=== PATIENT | female | born 1955 | race Caucasian/White ===

== ENCOUNTER 2017-07-10 10:56 | Observation (INO) | payer BC ==
[~2017-07-10] VITALS: Ht 167.6 cm; Wt 96.4 kg
[~2017-07-10 10:56] MED LIST: ESCI20 PO; ROFE25 PO; RXTRAM50 PO; TRAM50 PO
[2017-07-10 11:27] LABS: BASOPHILS ABSOLUTE AUTO 0.03 K/mm3 (0.00-0.23); BASOPHILS PERCENT AUTO 1 % (0-2); EOSINOPHILS ABSOLUTE AUTO 0.07 K/mm3 (0.00-0.68); EOSINOPHILS PERCENT AUTO 1 % (0-6); Hematocrit 39.9 % (33.0-51.0); Hemoglobin 13.6 g/dL (11.5-16.0); IMMATURE GRAN ABSOLUTE AUTO 0.02 K/mm3 (0.00-0.10); IMMATURE GRAN PERCENT AUTO 0 % (0-1); LYMPHOCYTES ABSOLUTE AUTO 1.77 K/mm3 (0.84-5.20); LYMPHOCYTES PERCENT AUTO 27 % (21-46); MONOCYTES ABSOLUTE AUTO 0.48 K/mm3 (0.16-1.47); MONOCYTES PERCENT AUTO 7 % (4-13); Mean Corpuscular HGB Conc 34.1 g/dL (31.5-36.5); Mean Corpuscular Volume 88 fL (80-100); Mean Platelet Volume 9.8 fL (9.1-12.4); NEUTROPHILS ABSOLUTE AUTO 4.24 K/mm3 (1.96-9.15); NEUTROPHILS PERCENT AUTO 64 % (41-73); Platelet Count 192 K/mm3 (150-400); RDW Coefficient Variation 13.6 % (11.7-14.2); RDW Standard Deviation 44.1 fL (35.1-46.3); Red Blood Cell Count 4.53 M/mm3 (3.80-5.20); White Blood Cell Count 6.61 K/mm3 (4.00-11.30)
[2017-07-10 11:45] LABS: Alanine Aminotransfer (ALT/SGP 21 U/L (12-78); Albumin, Blood 3.9 g/dL (3.4-5.0); Albumin/Globulin Ratio 0.9 (0.8-1.8); Alk Phos 112 U/L (50-136); Anion Gap 8 mmol/L (6-16); Aspartate Aminotrans (AST/SGOT 16 U/L (12-37); Bilirubin, Total 0.5 mg/dL (0.1-1.0); Blood Urea Nitrogen 11 mg/dL (8-24); Bun/Creatinine Ratio 12.9 (12.0-20.0); CO2, Blood 23 mmol/L (21-32); Calcium, Blood 8.7 mg/dL (8.5-10.1); Chloride, Blood 111 mmol/L (98-108); Creatinine, Blood 0.86 mg/dL (0.40-1.00); Globulin, Blood 4.2 g/dL (2.2-4.0); Glomerular Filtration Rate >60 (60-); Glucose, Blood 128 mg/dL (70-99); Potassium, Blood 2.9 mmol/L (3.5-5.5); Sodium, Blood 142 mmol/L (136-145); Total Protein, Blood 8.1 g/dL (6.4-8.2); Troponin I <0.015 ng/mL (0.000-0.040)
[2017-07-10] MEDS ORDERED: Pentasa500 MG PO (14:48)
[2017-07-10] MEDS ORDERED: QUETIAPINE FUMA50 MG PO (14:48)
[2017-07-10] MEDS ORDERED: CHOL10002 (14:49)
[2017-07-10] MEDS ORDERED: CYAN500 PO (14:49)
[2017-07-11 05:50] LABS: Troponin I <0.015 ng/mL (0.000-0.040)
[2017-07-11 05:59] LABS: Anion Gap 8 mmol/L (6-16); Blood Urea Nitrogen 9 mg/dL (8-24); Bun/Creatinine Ratio 13.9 (12.0-20.0); CO2, Blood 23 mmol/L (21-32); Chloride, Blood 113 mmol/L (98-108); Creatinine, Blood 0.65 mg/dL (0.40-1.00); Glomerular Filtration Rate >60 (60-); Glucose, Blood 121 mg/dL (70-99); Potassium, Blood 2.8 mmol/L (3.5-5.5); Sodium, Blood 144 mmol/L (136-145)
[2017-07-11 06:05] LABS: Calcium, Blood 7.7 mg/dL (8.5-10.1)
[2017-07-11 14:39] LABS: Anion Gap 9 mmol/L (6-16); Blood Urea Nitrogen 9 mg/dL (8-24); Bun/Creatinine Ratio 11.5 (12.0-20.0); CO2, Blood 23 mmol/L (21-32); Calcium, Blood 8.3 mg/dL (8.5-10.1); Chloride, Blood 111 mmol/L (98-108); Creatinine, Blood 0.78 mg/dL (0.40-1.00); Glomerular Filtration Rate >60 (60-); Glucose, Blood 158 mg/dL (70-99); Potassium, Blood 3.3 mmol/L (3.5-5.5); Sodium, Blood 143 mmol/L (136-145)
[2017-07-11] MEDS ORDERED: POTCHL20ER PO (16:39)
== END 2017-07-11 16:58 | disposition home or self-care (01) ==
LOC: ER 10:56 → MEDS 10:57 → ENPENDDIS 07-11 16:00 → MEDS 07-11 16:58
PROVIDERS: Emergency Medicine; Family Medicine
DX: R07.9 Chest pain, unspecified (principal); R10.9 Unspecified abdominal pain; E87.6 Hypokalemia; F32.9 Major depressive disorder, single episode, unspecified; F12.90 Cannabis use, unspecified, uncomplicated; E78.5 Hyperlipidemia, unspecified; Z90.49 Acquired absence of other specified parts of digestive tract; Z90.710 Acquired absence of both cervix and uterus; Z98.890 Other specified postprocedural states; Z88.5 Allergy status to narcotic agent; Z91.013 Allergy to seafood; Z91.041 Radiographic dye allergy status; Z79.899 Other long term (current) drug therapy; Z87.891 Personal history of nicotine dependence; Z87.19 Personal history of other diseases of the digestive system
CPT/HCPCS: 36415; 71046; 80048; 80053; 83735; 84484; 85025; 93005; 93010; 99285; G0378

== ENCOUNTER 2020-06-16 12:04 | Inpatient (IN) | payer OTHER ==
[~2020-06-16] VITALS: Ht 167.6 cm; Wt 87.5 kg
[~2020-06-16 12:04] MED LIST changes: +ACET325 PO; +CHOL10002; +CYAN500 PO; -ESCI20 PO; +POTCHL20ER PO; +Pentasa500 MG PO
[2020-06-16] MEDS ORDERED: ONDA8 PO (13:12)
[2020-06-16] MEDS ORDERED: ESCI10 PO (13:12)
[2020-06-16] MEDS ORDERED: Seroquel Xr50 MG PT (13:13)
[2020-06-16] MEDS ORDERED: TOLT4 PT (13:13)
[2020-06-16] MEDS ORDERED: ASCO500 PO (13:14)
[2020-06-16] MEDS ORDERED: CYAN500 PO (13:14)
[2020-06-16] MEDS ORDERED: Vitamin D2000 UNIT PO (13:14)
[2020-06-16 13:35] LABS: Free Thyroxine 1.33 ng/dL (0.70-1.60); Magnesium, Blood 1.9 mg/dL (1.6-2.4); Phosphorus, Blood 2.6 mg/dL (2.5-4.9); Thyroid Stimulating Hormone 1.13 uIU/mL (0.360-4.800)
[2020-06-16 13:57] LABS: Hematocrit 25.4 % (33.0-51.0); Mean Corpuscular Volume 77 fL (80-100); Mean Platelet Volume 10.5 fL (9.1-12.4); Platelet Count 200 K/mm3 (150-400); RDW Coefficient Variation 14.6 % (11.7-14.2); RDW Standard Deviation 39.8 fL (35.1-46.3); Red Blood Cell Count 3.31 M/mm3 (3.80-5.20)
[2020-06-16 14:55] LABS: BAND PERCENT MAN 6 % (0-8); BASOPHILS PERCENT MAN 0 % (0-2); EOSINOPHILS PERCENT MAN 0 % (0-6); LYMPHOCYTES ABSOLUTE MAN 0.76 K/mm3 (0.84-5.20); LYMPHOCYTES PERCENT MAN 4 % (21-46); METAMYELOCYTE ABSOLUTE MAN 0.38 K/mm3 (0.00-0.00); METAMYELOCYTE PERCENT MAN 2 % (0-0); MONOCYTES ABSOLUTE MAN 0.38 K/mm3 (0.16-1.47); MONOCYTES PERCENT MAN 2 % (4-13); NEUTROPHILS ABSOLUTE MAN 17.57 K/mm3 (1.96-9.15); SEG NEUTROPHILS PERCENT MAN 86 % (41-73); TOTAL CELLS COUNTED 100
[2020-06-16 15:23] LABS: Hematocrit 21.4 % (33.0-51.0); Mean Corpuscular Volume 79 fL (80-100); Platelet Count 183 K/mm3 (150-400); RDW Coefficient Variation 14.6 % (11.7-14.2); RDW Standard Deviation 39.8 fL (35.1-46.3); Red Blood Cell Count 2.71 M/mm3 (3.80-5.20); White Blood Cell Count 17.29 K/mm3 (4.00-11.30)
[2020-06-16 15:51] LABS: Albumin, Blood 3.4 g/dL (3.4-5.0); Anion Gap 15 mmol/L (6-16); Blood Urea Nitrogen 131 mg/dL (8-24); Bun/Creatinine Ratio 20.7 (12.0-20.0); CO2, Blood 24 mmol/L (21-32); Calcium, Blood 9.1 mg/dL (8.5-10.1); Chloride, Blood 87 mmol/L (98-108); Creatinine, Blood 6.34 mg/dL (0.40-1.00); Glomerular Filtration Rate 7 (60-); Glucose, Blood 192 mg/dL (70-99); Potassium, Blood 1.7 mmol/L (3.5-5.5); Sodium, Blood 126 mmol/L (136-145)
[2020-06-16 15:55] LABS: BAND PERCENT MAN 6 % (0-8); BASOPHILS PERCENT MAN 0 % (0-2); EOSINOPHILS PERCENT MAN 0 % (0-6); LYMPHOCYTES ABSOLUTE MAN 0.51 K/mm3 (0.84-5.20); LYMPHOCYTES PERCENT MAN 3 % (21-46); METAMYELOCYTE ABSOLUTE MAN 0.51 K/mm3 (0.00-0.00); METAMYELOCYTE PERCENT MAN 3 % (0-0); MONOCYTES ABSOLUTE MAN 1.21 K/mm3 (0.16-1.47); MONOCYTES PERCENT MAN 7 % (4-13); NEUTROPHILS ABSOLUTE MAN 15.04 K/mm3 (1.96-9.15); SEG NEUTROPHILS PERCENT MAN 81 % (41-73); TOTAL CELLS COUNTED 100
--- NOTE | 2020-06-16 16:55 | NUR ---
PT ARRIVES TO ICU 13 FROM ER VIA GURNEY. ACCOMPANIED BY MANAGER TRADE MARKETING. PT ONLY HAS 24G IV TO L WRIST THAT IS SLOW TO FLUSH. RN AT BEDSIDE TO DO MIDLINE IV SO IV POTASSIUM CAN BE GIVEN. IVF AND FIRST IVP OF POTASSIUM HANGING BUT NOT RUNNING ON ARRIVAL TO UNIT DUE TO POOR IV ACCESS. PT IS A/O X4. DOES MOST OF THE TALKING FOR PT DUE TO HER TONGUE CA. NO SIGN OF DISTRESS.
[2020-06-16 17:23] LABS: Base Excess Venous -5.5 mmol/L; Bicarbonate Venous 19.8 mmol/L (24.0-30.0); PCO2 Venous 37.1 mmHg (38-42); PO2 Venous 31.8 mmHg (38-42); pH Blood Venous 7.34 (7.34-7.37)
--- NOTE | 2020-06-16 17:30 | NUR ---
POWERGLIDE IV ACCESS WAS OBTAINED. IVF AND POTASSIUM IVPB STARTED THAT WAS HANGING FROM THE ER. NO DISTRESS. AT BEDSIDE. PEG TUBE WORKS WELL. CALL LIGHT IN REACH.
--- NOTE | 2020-06-16 19:00 | NUR ---
ASSUMPTION OF CARE RECEIVED REPORT FROM CY EVERETT. ASSUMED CARE OF PATIENT. PATEINT A/O, DENIES DISCOMFORTS OR NEEDS. VITALS STABLE. POTASSIUM IV INFUSING ORDERED. WILL REVIEW ORDERS AND TREAT PRESCRIBED.
[2020-06-16 19:34] LABS: Hematocrit 19.7 % (33.0-51.0); Hemoglobin 7.4 g/dL (11.5-16.0)
--- NOTE | 2020-06-17 | NUR ---
REASSESSMENT NO ACUTE CHANGES FROM INITIAL ASSESSMENT. VITALS CHARTED. POTASSIUM CONTINUES TO INFUSE VIA IV. PATIENT EASILY AWAKENS AND DENIES NEEDS OR DISCOMFORTS. CALL LIGHT IN REACH.
[2020-06-17 01:51] LABS: BASOPHILS ABSOLUTE AUTO 0.02 K/mm3 (0.00-0.23); BASOPHILS PERCENT AUTO 0 % (0-2); EOSINOPHILS ABSOLUTE AUTO 0.01 K/mm3 (0.00-0.68); EOSINOPHILS PERCENT AUTO 0 % (0-6); Hemoglobin 6.6 g/dL (11.5-16.0); IMMATURE GRAN ABSOLUTE AUTO 1.21 K/mm3 (0.00-0.10); IMMATURE GRAN PERCENT AUTO 11 % (0-1); LYMPHOCYTES ABSOLUTE AUTO 0.58 K/mm3 (0.84-5.20); LYMPHOCYTES PERCENT AUTO 5 % (21-46); MONOCYTES ABSOLUTE AUTO 0.71 K/mm3 (0.16-1.47); MONOCYTES PERCENT AUTO 7 % (4-13); Mean Corpuscular HGB 29.5 pg (26.0-34.0); Mean Corpuscular HGB Conc 36.9 g/dL (31.5-36.5); Mean Corpuscular Volume 80 fL (80-100); Mean Platelet Volume 9.9 fL (9.1-12.4); NEUTROPHILS ABSOLUTE AUTO 8.23 K/mm3 (1.96-9.15); NEUTROPHILS PERCENT AUTO 77 % (41-73); Platelet Count 146 K/mm3 (150-400); RDW Coefficient Variation 14.6 % (11.7-14.2); RDW Standard Deviation 41.2 fL (35.1-46.3); Red Blood Cell Count 2.24 M/mm3 (3.80-5.20); White Blood Cell Count 10.76 K/mm3 (4.00-11.30)
[2020-06-17 01:53] LABS: Hematocrit 17.9 % (33.0-51.0)
[2020-06-17 02:05] LABS: Magnesium, Blood 2.4 mg/dL (1.6-2.4)
[2020-06-17 02:09] LABS: BAND PERCENT MAN 7 % (0-8); BASOPHILS PERCENT MAN 0 % (0-2); EOSINOPHILS PERCENT MAN 0 % (0-6); LYMPHOCYTES ABSOLUTE MAN 0.64 K/mm3 (0.84-5.20); LYMPHOCYTES PERCENT MAN 6 % (21-46); MONOCYTES ABSOLUTE MAN 0.53 K/mm3 (0.16-1.47); MONOCYTES PERCENT MAN 5 % (4-13); NEUTROPHILS ABSOLUTE MAN 9.57 K/mm3 (1.96-9.15); SEG NEUTROPHILS PERCENT MAN 82 % (41-73); TOTAL CELLS COUNTED 100
[2020-06-17 02:19] LABS: Albumin, Blood 2.8 g/dL (3.4-5.0); Anion Gap 13 mmol/L (6-16); Blood Urea Nitrogen 124 mg/dL (8-24); Bun/Creatinine Ratio 20.4 (12.0-20.0); CO2, Blood 21 mmol/L (21-32); Calcium, Blood 8.1 mg/dL (8.5-10.1); Chloride, Blood 99 mmol/L (98-108); Creatinine, Blood 6.07 mg/dL (0.40-1.00); Glomerular Filtration Rate 7 (60-); Glucose, Blood 140 mg/dL (70-99); Phosphorus, Blood 2.5 mg/dL (2.5-4.9); Potassium, Blood 2.2 mmol/L (3.5-5.5); Sodium, Blood 133 mmol/L (136-145)
--- NOTE | 2020-06-17 02:28 | NUR ---
LABS RECEIVED LABS, CALLED DR. MARI AND LEFT MESSAGE AT [phone]. AWAITING CALL BACK.
[2020-06-17 02:58] LABS: Source, Urine Clean Catch
[2020-06-17 03:05] LABS: Bilirubin, Urine Neg (Neg); Blood, Urine 1+ (Neg); Glucose Qualitative, Urine Neg (Neg); Ketones, Urine Neg (Neg); Leukocyte Esterase, Urine Neg (Neg); Nitrite, Urine Neg (Neg); Protein, Urine 2+ (Neg); Urobilinogen, Urine NORM (Normal)
[2020-06-17 03:14] LABS: Appearance, Urine Clear (Clear); Color, Urine Yellow (P-Yellow)
[2020-06-17 03:15] LABS: Bacteria Mod /hpf; Red Blood Cells, Urine 0-2 /hpf (0-2); Squamous Epithelial Cells Few /hpf (Few)
--- NOTE | 2020-06-17 04:00 | NUR ---
REASSESSMENT NO ACUTE CHANGES FROM PREVIOUS ASSESSMENT. VITALS STABLE. LABS WERE REPORTED TO DR. MARI WITH NEW ORDER RECEIVED. WILL TREAT PRESCRIBED.
--- NOTE | 2020-06-17 06:28 | NUR ---
SHIFT SUMMARY PATIENT'S ASSESSMENT REMAINED UNCHANGED. VITALS STABLE. POTASSIUM REPORTED TO DR. MARI CHARTED AND IS CURRENTLY INFUSING VIA IV. PRBC ARE ALSO INFUSING ORDERED. WILL CONTINUE TO MONITOR AND REPORT TO ONCOMING RN.
--- NOTE | 2020-06-17 08:10 | NUR ---
ASSUMED CARE RECEIVED REPORT FROM MARGUERITE BAXTER. PT IS LYING IN BED AWAKE, ALERT, AND ORIENTED X 4. SHE IS [place] AND CAN HAVE DIFFICULTY SPEAKING HER MOUTH GETS DRY FROM HER HISTORY OF TONGUE CANCER, RADIATION, AND CHEMO. SHE DENIES PAIN, SOB, AND NAUSEA. HER PEG TUBE SITE LOOKS CDI. HER UNIT OF BLOOD FINISHED JUST BEFORE 0800. LABS WILL BE RECHECKED AT [address] MAYO. SHE HAS STABLE VITALS, SINUS RHYTHM, MAP > 65, ON ROOM AIR WITH SPOW > 94%. NS INFUSING AT 100 ML/HR WHILE BLOOD WAS INFUSING, BUT NOW INCREASED TO 200 ML/HR PER ORDERS NOW THAT BLOOD HAS FINISHED INFUSING. BED LOW AND LOCKED. CALL LIGHT WITHIN REACH.
[2020-06-17 08:48] LABS: Hematocrit 20.8 % (33.0-51.0); Hemoglobin 7.5 g/dL (11.5-16.0); Mean Corpuscular HGB 30.1 pg (26.0-34.0); Mean Corpuscular HGB Conc 36.1 g/dL (31.5-36.5); Mean Corpuscular Volume 84 fL (80-100); Mean Platelet Volume 9.7 fL (9.1-12.4); Platelet Count 139 K/mm3 (150-400); RDW Coefficient Variation 16.4 % (11.7-14.2); RDW Standard Deviation 48.9 fL (35.1-46.3); Red Blood Cell Count 2.49 M/mm3 (3.80-5.20); White Blood Cell Count 11.82 K/mm3 (4.00-11.30)
[2020-06-17 09:06] LABS: Albumin, Blood 2.7 g/dL (3.4-5.0); Albumin/Globulin Ratio 0.9 (0.8-1.8); Bilirubin, Total 0.6 mg/dL (0.1-1.0); Bun/Creatinine Ratio 20.5 (12.0-20.0); Calcium, Blood 8.1 mg/dL (8.5-10.1); Creatinine, Blood 5.67 mg/dL (0.40-1.00); Globulin, Blood 3.1 g/dL (2.2-4.0); Magnesium, Blood 2.4 mg/dL (1.6-2.4); Potassium, Blood 2.6 mmol/L (3.5-5.5); Total Protein, Blood 5.8 g/dL (6.4-8.2)
[2020-06-17 09:09] LABS: BAND PERCENT MAN 5 % (0-8); BASOPHILS PERCENT MAN 0 % (0-2); EOSINOPHILS PERCENT MAN 0 % (0-6); LYMPHOCYTES ABSOLUTE MAN 0.82 K/mm3 (0.84-5.20); LYMPHOCYTES PERCENT MAN 7 % (21-46); MONOCYTES ABSOLUTE MAN 1.06 K/mm3 (0.16-1.47); MONOCYTES PERCENT MAN 9 % (4-13); MYELOCYTE ABSOLUTE MAN 0.11 K/mm3 (0.00-0.00); MYELOCYTE PERCENT MAN 1 % (0-0); NEUTROPHILS ABSOLUTE MAN 9.81 K/mm3 (1.96-9.15); SEG NEUTROPHILS PERCENT MAN 78 % (41-73); TOTAL CELLS COUNTED 100
[2020-06-17 15:56] LABS: Hematocrit 20.6 % (33.0-51.0); Hemoglobin 7.5 g/dL (11.5-16.0); Mean Corpuscular HGB 30.7 pg (26.0-34.0); Mean Corpuscular HGB Conc 36.4 g/dL (31.5-36.5); Mean Corpuscular Volume 84 fL (80-100); Mean Platelet Volume 9.8 fL (9.1-12.4); Platelet Count 156 K/mm3 (150-400); RDW Coefficient Variation 15.9 % (11.7-14.2); RDW Standard Deviation 47.4 fL (35.1-46.3); Red Blood Cell Count 2.44 M/mm3 (3.80-5.20); White Blood Cell Count 11.54 K/mm3 (4.00-11.30)
[2020-06-17 16:13] LABS: Albumin, Blood 2.7 g/dL (3.4-5.0); Albumin/Globulin Ratio 0.9 (0.8-1.8); Bilirubin, Total 0.3 mg/dL (0.1-1.0); Bun/Creatinine Ratio 20.6 (12.0-20.0); Calcium, Blood 8.3 mg/dL (8.5-10.1); Creatinine, Blood 5.19 mg/dL (0.40-1.00); Total Protein, Blood 5.7 g/dL (6.4-8.2)
[2020-06-17 16:26] LABS: BAND PERCENT MAN 4 % (0-8); BASOPHILS PERCENT MAN 0 % (0-2); EOSINOPHILS PERCENT MAN 0 % (0-6); LYMPHOCYTES PERCENT MAN 7 % (21-46); METAMYELOCYTE ABSOLUTE MAN 0.23 K/mm3 (0.00-0.00); METAMYELOCYTE PERCENT MAN 2 % (0-0); MONOCYTES ABSOLUTE MAN 0.46 K/mm3 (0.16-1.47); MONOCYTES PERCENT MAN 4 % (4-13); NEUTROPHILS ABSOLUTE MAN 10.03 K/mm3 (1.96-9.15); SEG NEUTROPHILS PERCENT MAN 83 % (41-73); TOTAL CELLS COUNTED 100
--- NOTE | 2020-06-17 17:30 | NUR ---
UPDATE/TRANSFER PEG TUBE INSERTION SITE (@ 10cm) - SITE HAS A LITTLE RING OF REDNESS AROUND INSERTION. THERE IS PURULENT DRAINAGE, AND IT HAS A FOUL ODOR. THIS HAS BEEN CULTURED AND SENT TO LAB. THE SPOUSE EXPRESSED CONCERNS REGARDING THE PEG TUBE COMING OUT A LITTLE BIT, 6 OR SO WEEKS AGO WHEN THE TUBE WAS INSERTED IT WAS LISTED AT 6 cm, AND NOW ITS 10 cm. IT FLUSHES WITH EASE, BUT AT 1600 I DID NOT GET ANY MEASURABLE RESIDUALS - OF COURSE AT THAT TIME SHE ONLY HAD ABOUT 88 ML OF TF INFUSED, 30 ML OF WATER FLUSHED, AND HAD POOR INTAKE PRIOR TO COMING TO HOSPITAL. NOT CONCERNED ABOUT THE SCANT RESIDUALS. THE PT STARTED SAYING SHE FELT LIKE SHE WAS GETTING "FULL". MARIA ESTHER IS AWARE OF PT AND HER SPOUSE'S CONCERNS, AND THE DRAINAGE. TF INFUSING AT 20 ML/HR, WITH 30 ML Q4H FLUSHES. TF IS SET TO INCREASE AT 2000 (8 HOURS AFTER STARTED). THE TF IS RENALCAL, AND IT WAS BROUGHT BY FROME HOME. SOLE ROUNDER CONSULTED AND INVOLVED WITH FEED. DR. MANDEL HAS SEEN PT TODAY. SHE HAS MADE SOME CHANGES, PT IS NOW HAVING 1/2NS AT 150ML/HR. PT RECIEVING AN ADDITIONAL 40 MEQ OF KCL IV AFTER HER POTASSIUM AT 1545 CAME BACK 3.0. PT IS TRANSFERRING TO PCU.
[2020-06-18 05:04] LABS: Hematocrit 19.9 % (33.0-51.0); Hemoglobin 7.1 g/dL (11.5-16.0); Mean Corpuscular HGB 30.5 pg (26.0-34.0); Mean Corpuscular HGB Conc 35.7 g/dL (31.5-36.5); Mean Corpuscular Volume 85 fL (80-100); Platelet Count 155 K/mm3 (150-400); RDW Coefficient Variation 16.4 % (11.7-14.2); RDW Standard Deviation 49.5 fL (35.1-46.3); Red Blood Cell Count 2.33 M/mm3 (3.80-5.20); White Blood Cell Count 8.72 K/mm3 (4.00-11.30)
[2020-06-18 05:30] LABS: BAND PERCENT MAN 5 % (0-8); BASOPHILS PERCENT MAN 0 % (0-2); EOSINOPHILS PERCENT MAN 0 % (0-6); LYMPHOCYTES ABSOLUTE MAN 0.69 K/mm3 (0.84-5.20); LYMPHOCYTES PERCENT MAN 8 % (21-46); METAMYELOCYTE ABSOLUTE MAN 0.34 K/mm3 (0.00-0.00); METAMYELOCYTE PERCENT MAN 4 % (0-0); MONOCYTES ABSOLUTE MAN 0.61 K/mm3 (0.16-1.47); MONOCYTES PERCENT MAN 7 % (4-13); NEUTROPHILS ABSOLUTE MAN 7.06 K/mm3 (1.96-9.15); SEG NEUTROPHILS PERCENT MAN 76 % (41-73); TOTAL CELLS COUNTED 100
--- NOTE | 2020-06-18 05:32 | NUR ---
SHIFT SUMMARY PT A&O X 4; PLEASANT & COMPLIANT W/ CARE; DENIES CHEST PAIN; VSS; NSR NOTED ON TELE; O2 SATS >93 ON RA; MINIMAL RESIDUAL W/ PEG TUBE, FLUSHES WELL; CONTINUOUS FEED AT 20 ML/HR; SBA TO BSC, PT T/O WELL; PT SITTING IN BED USING PERSONAL IPAD; NO DISTRESS NOTED; CALL LIGHT IN REACH; BED IN LOWEST POSITION; WILL CONTINUE TO MONITOR CLOSELY UNTIL HAND OFF TO DAY SHIFT RN.
[2020-06-18 05:46] LABS: Albumin, Blood 2.6 g/dL (3.4-5.0); Albumin/Globulin Ratio 0.8 (0.8-1.8); Bilirubin, Total 0.4 mg/dL (0.1-1.0); Bun/Creatinine Ratio 19.5 (12.0-20.0); Calcium, Blood 8.3 mg/dL (8.5-10.1); Creatinine, Blood 4.78 mg/dL (0.40-1.00); Globulin, Blood 3.1 g/dL (2.2-4.0); Magnesium, Blood 2.2 mg/dL (1.6-2.4); Phosphorus, Blood 1.4 mg/dL (2.5-4.9); Potassium, Blood 3.1 mmol/L (3.5-5.5); Total Protein, Blood 5.7 g/dL (6.4-8.2)
[2020-06-18 09:55] LABS: Percent Saturation 51.7 % (15.0-50.0)
--- NOTE | 2020-06-18 09:56 | NUR ---
AWAITING LAB RESULTS BEFORE BLOOD TRANFUSION TO BEGIN PER DR MAYO, LABS ARE STILL PENDING AT THIS TIME
[2020-06-18 14:29] LABS: Phosphorus, Blood 2.5 mg/dL (2.5-4.9); Potassium, Blood 3.2 mmol/L (3.5-5.5)
--- NOTE | 2020-06-18 17:09 | NUR ---
pt sts stomach is too full for liquacel will hold for an hour and reassess
--- NOTE | 2020-06-19 05:49 | NUR ---
SHIFT SUMMARY PT A&O X4; STATES FEELING FRUSTRATED EARLIER IN DAY W/ FAMILY FRIEND CALLING PT'S SON AND DISCLOSING INFORMATION ABOUT BEING IN HOSPITAL; THIS RN LISTENED TO PT AND ALLOWED TIME TO EXPRESS FEELINGS; PT PLEASANT & COMPLIANT W/ CARE; VSS; NSR NOTED ON TELE W/ HR IN 90'S; O2 SATS >93; TF PAUSED FOR A COUPLE HOURS PER PT REQUEST; REMAINDER OF SHIFT TF INFUSING AT 30ML / HR; NO RESIDUAL NOTED, HOWEVER FLUSHES APPROPRIATELY; SBA TO BSC; CALL LIGHT IN REACH; BED IN LOWEST POSITION; WILL CONTINUE TO MONITOR CLOSELY UNTIL HAND OFF TO DAY SHIFT RN.
[2020-06-19 06:45] LABS: Bun/Creatinine Ratio 19.2 (12.0-20.0); Calcium, Blood 8.5 mg/dL (8.5-10.1); Creatinine, Blood 3.86 mg/dL (0.40-1.00); Magnesium, Blood 1.7 mg/dL (1.6-2.4); Phosphorus, Blood 2.7 mg/dL (2.5-4.9)
--- NOTE | 2020-06-19 12:08 | NUR ---
Clinical Visit: Pt is alert, oriented. She denies pain, discomfort. She does report mild to moderate anxiety - which she is able to adequately cope to reduce stress using self-soothing techniques. She reports she does have an advance directive document. Requested family member to bring it in for her: She states she will ask her . Pt reports that she is finished with chemo treatments for now. She has no other concerns. Will remain available.
--- NOTE | 2020-06-19 17:36 | NUR ---
SHIFT SUMMARY; A/A/OX4 THROUGHOUT SHIFT. SBA TO BEDSIDE COMMODE, PEG TUB IN PLACE WITH FEEDING INFUSING AT 40ML/HR WITH Q4HR FLUSH, TOLERATING WELL. VSS, PEG TUBE INSERTION SITE CLEAN DRY AND NON RED. BED BATH TODAY AND LINEN CHANGE. SPOUSE AT BEDSIDE THROUGHOUT AFTERNOON. NO ACUTE MEDICAL CHANGES, WILL CONTINUE TO MONITOR AND TREAT UNTIL CHANGE OF SHIFT.
--- NOTE | 2020-06-19 22:02 | NUR ---
ASSUMED CARE OF PATIENT AT APPROXIMATELY 1900 FROM TONG Reddy RN. PATIENT ALERT AND ORIENTED X4. SBA TO BEDSIDE COMMODE; 24 HR URINE TO START WITH NEXT VOID; LAST VOID MIXED WITH STOOL LEFT IN COMMODE. PATIENT DENIES PAIN, NUMBNESS, TINGLING, DIZZINESS OR NAUSEA. REPORT THROAT IS SORE AND JUST HAD TYLENOL; ICE PACK GIVEN FOR NECK; PATIENT EATS ICE CHIPS. PEG TUBE; CONTINUOUS TUBE FEEDING TO GOAL. PG ANDERS INFUSING IVF PER ORDER. NSR ON TELE; OXYGEN SATURATION ABOVE 90% ON ROOM AIR. PIV S/L. PATIENT CURRENTLY RESTING IN BED; CALL LIGHT IN REACH; BED IN LOWEST POSISTION; WILL CONTINUE TO MONITOR AND ASSESS UNTIL END OF SHIFT.
[2020-06-20 04:50] LABS: Hematocrit 23.5 % (33.0-51.0); Hemoglobin 8.1 g/dL (11.5-16.0); Mean Corpuscular HGB 30.1 pg (26.0-34.0); Mean Corpuscular HGB Conc 34.5 g/dL (31.5-36.5); Mean Corpuscular Volume 87 fL (80-100); Mean Platelet Volume 9.6 fL (9.1-12.4); Platelet Count 207 K/mm3 (150-400); RDW Coefficient Variation 17.1 % (11.7-14.2); RDW Standard Deviation 52.3 fL (35.1-46.3); Red Blood Cell Count 2.69 M/mm3 (3.80-5.20); White Blood Cell Count 10.53 K/mm3 (4.00-11.30)
[2020-06-20 05:09] LABS: Albumin, Blood 2.8 g/dL (3.4-5.0); Albumin/Globulin Ratio 0.8 (0.8-1.8); Bilirubin, Total 0.2 mg/dL (0.1-1.0); Bun/Creatinine Ratio 18.2 (12.0-20.0); Calcium, Blood 8.6 mg/dL (8.5-10.1); Creatinine, Blood 3.29 mg/dL (0.40-1.00); Globulin, Blood 3.5 g/dL (2.2-4.0); Magnesium, Blood 1.4 mg/dL (1.6-2.4); Phosphorus, Blood 2.2 mg/dL (2.5-4.9); Potassium, Blood 3.2 mmol/L (3.5-5.5); Total Protein, Blood 6.3 g/dL (6.4-8.2); Uric Acid, Blood 5.2 mg/dL (2.6-6.0)
[2020-06-20 05:28] LABS: BAND PERCENT MAN 5 % (0-8); BASOPHILS PERCENT MAN 0 % (0-2); EOSINOPHILS PERCENT MAN 0 % (0-6); LYMPHOCYTES ABSOLUTE MAN 0.63 K/mm3 (0.84-5.20); LYMPHOCYTES PERCENT MAN 6 % (21-46); METAMYELOCYTE ABSOLUTE MAN 0.31 K/mm3 (0.00-0.00); METAMYELOCYTE PERCENT MAN 3 % (0-0); MONOCYTES ABSOLUTE MAN 1.05 K/mm3 (0.16-1.47); MONOCYTES PERCENT MAN 10 % (4-13); MYELOCYTE ABSOLUTE MAN 0.21 K/mm3 (0.00-0.00); MYELOCYTE PERCENT MAN 2 % (0-0); NEUTROPHILS ABSOLUTE MAN 8.31 K/mm3 (1.96-9.15); SEG NEUTROPHILS PERCENT MAN 74 % (41-73); TOTAL CELLS COUNTED 100
--- NOTE | 2020-06-20 06:17 | NUR ---
PATIENT SLEPT ABOUT EIGHT HOURS LAST NIGHT. 24 URINE STARTED AT 0108; THREE VOIDS. DR. MARI CALLED ABOUT LOW MAG AND PHOS; ORDERS RECIEVED. VSS. WILL CONTINUE TO MONITOR AND ASSESS UNTIL END OF SHIFT.
[2020-06-20 12:14] LABS: Stool Occult Bld Immuno 1 Negative (NEGATIVE)
--- NOTE | 2020-06-20 17:29 | NUR ---
PT ARRIVED TO THE MEDICAL FLOOR FROM THE PCU, REPORT WAS TAKEN FROM RODRIGUEZ EVERETT, THE PT WAS ORIENTED TO THE ROOM CALL SYSTEM AND LAYOUT, FAMILY IS WITH THE PT AT THIS TIME , PT APPEARS TO BE BREATHING EASILY CALL LIGHT IN REACH
--- NOTE | 2020-06-20 17:32 | NUR ---
PT STATUS CHANGED TO MEDICAL WITH NO TELE, REPORT GIVEN TO ELIGIO EVERETT PT TRANSFERRED TO RM [id number]. NO ACUTE CHANGE FOR THE SHIFT, HRR SINUS AT 70-90'S, BP SYSTOLIC 150-170'S, SATS ABOVE 95% ON RA, AFEBRILE. NO ACUTE CHANGE FOR THE SHIFT, PT HAD 3 LOOSE BM FOR TODAY, PT REMAINS NPO EXCEPT FOR ICE CHIPS TUBE FEEDING RUNNING AT 40MLS/HR ATTEMPTED TO TURN UP TO 50MLS/HR PT COULDN'T TOLERATE 30MLS FLUSH Q 4HRS. 24 HRS URINE TEST CANCELLED PER DR MANDEL RANDOM URINE WAS ORDER INSTEAD. NO OTHER ISSUES ENCOUNTERED FOR THE SHIFT, PT HAS BEEN USING BEDSIDE COMMODE 1PA FOR TOILETING. DENIES ANY PAIN. ALL BELONGINGS SENT WITH PT, AWARE OF THE PLANS WAS AT BEDSIDE DURING PT'S TRANSFER. WILL MONITOR
--- NOTE | 2020-06-20 23:33 | NUR ---
NAUSEA/TUBE FEEDS PT COMPLAINING OF CONSISTENT NAUSEA WITH TUBE FEEDS MEDICATED X1 WITH ZOFRAN WITH EFFECT BUT NAUSEA HAS RETURNED. FEED IS GOING AT 40 HR WHICH WAS PREVIOSULY DETERMINED TO BE AN APPROPRIATE RATE FOR PT. PT REPORTS THAT SHE IS NOT USE TO CONTINIOUS FEEDS, AND ONLY DOES INTERMITTENT BOLUS FEEDS FIVE TIMES PER DAY. DR. OLIVARES NOTIFIED OF PT NAUSEA. DR. OLIVARES WOULD LIKE TO STOP TUBE FEEDS FOW NOW AND HAVE DAYSHIFR RN AND PROVIDER CONSULT WITH DIETARY/NUTRITION ABOUT RESUMING HER HOME FEED SCHEDULE.
[2020-06-21 04:51] LABS: Hematocrit 26.1 % (33.0-51.0); Hemoglobin 9.1 g/dL (11.5-16.0); Mean Corpuscular HGB 30.4 pg (26.0-34.0); Mean Corpuscular HGB Conc 34.9 g/dL (31.5-36.5); Mean Corpuscular Volume 87 fL (80-100); Mean Platelet Volume 9.3 fL (9.1-12.4); Platelet Count 212 K/mm3 (150-400); RDW Coefficient Variation 17.1 % (11.7-14.2); RDW Standard Deviation 52.3 fL (35.1-46.3); Red Blood Cell Count 2.99 M/mm3 (3.80-5.20); White Blood Cell Count 11.66 K/mm3 (4.00-11.30)
[2020-06-21 05:09] LABS: Bun/Creatinine Ratio 17.4 (12.0-20.0); Creatinine, Blood 2.88 mg/dL (0.40-1.00); Magnesium, Blood 1.7 mg/dL (1.6-2.4); Phosphorus, Blood 3.9 mg/dL (2.5-4.9); Potassium, Blood 3.1 mmol/L (3.5-5.5)
[2020-06-21 05:13] LABS: BAND PERCENT MAN 5 % (0-8); BASOPHILS ABSOLUTE MAN 0.11 K/mm3 (0.00-0.23); BASOPHILS PERCENT MAN 1 % (0-2); EOSINOPHILS PERCENT MAN 0 % (0-6); LYMPHOCYTES ABSOLUTE MAN 0.23 K/mm3 (0.84-5.20); LYMPHOCYTES PERCENT MAN 2 % (21-46); MONOCYTES ABSOLUTE MAN 0.81 K/mm3 (0.16-1.47); MONOCYTES PERCENT MAN 7 % (4-13); MYELOCYTE ABSOLUTE MAN 0.11 K/mm3 (0.00-0.00); MYELOCYTE PERCENT MAN 1 % (0-0); NEUTROPHILS ABSOLUTE MAN 10.37 K/mm3 (1.96-9.15); SEG NEUTROPHILS PERCENT MAN 84 % (41-73); TOTAL CELLS COUNTED 100
--- NOTE | 2020-06-21 05:47 | NUR ---
SHIFT SUMMARY PT HAS BEEN AWAKE MOST OF THE NIGHT. SHE HAS HAD NAUSEA FOR A GOOD PORITION OF SHIFT. PT HAS RECEIVED X2 OF ZOFRAN AND X1 OF REGLAN. REGLAN SEEMED TO WORK BEST FOR HER, ELEVEATING HER NAUSEA. PT HAS HAD HEAVES AND 100 CC OF YELLOW EMESIS. PT CONTINUES TO HAVE LOOSE STOOLS. ABD IS DISTENDED, BUT NO COMPLAINTS OF ABD PAIN. DR. CAMEJO NOTIFIED OF PT NAUSEA AND TUBE FEEDINGS STOPPED FOR THE NIGHT. IVF W POTASSIUM INFUSING ORDERED. PT IS AMBULATING WELL WITH 1 PA TO BSC. VITALS STABLE, BG STABLE WITH Q 6H CHECKS. PT A/OX4, PLESANT WITH CARE. BED IN LOWEST POSITON, CALL LIGHT WITHIN REACH.
[2020-06-21 13:36] LABS: Source, Urine Voided
--- NOTE | 2020-06-21 13:41 | NUR ---
Pastoral care visitation conducted. Pt was recumbent in bed, alert and pleasantly oriented. Pt gave a brief overview as to her current situation and overall well-being. Active listening and normalization of felt expression provided. Pt requested prayer which was readily provided for consolation and encouragement. Pt reports that she is awaiting her husbands arrival and expresses gratitude for the familial support. I will remain available for further PC support prospectively.
[2020-06-21 13:47] LABS: Appearance, Urine Clear (Clear); Bilirubin, Urine Neg (Neg); Blood, Urine Neg (Neg); Color, Urine Yellow (P-Yellow); Glucose Qualitative, Urine Neg (Neg); Ketones, Urine Neg (Neg); Leukocyte Esterase, Urine Neg (Neg); Nitrite, Urine Neg (Neg); Protein, Urine 1+ (Neg); Urobilinogen, Urine NORM (Normal)
--- NOTE | 2020-06-21 15:53 | NUR ---
TUBE FEED AT APPROXIMATLY 1330 THE PT AGREED TO RESTART TUBE FEED, PT HAD NO RESIDUAL AT THE TIME
[2020-06-22 04:39] LABS: Hematocrit 24.5 % (33.0-51.0); Hemoglobin 8.3 g/dL (11.5-16.0); Mean Corpuscular HGB 30.4 pg (26.0-34.0); Mean Corpuscular HGB Conc 33.9 g/dL (31.5-36.5); Mean Corpuscular Volume 90 fL (80-100); Mean Platelet Volume 9.4 fL (9.1-12.4); Platelet Count 196 K/mm3 (150-400); RDW Coefficient Variation 17.2 % (11.7-14.2); RDW Standard Deviation 55.6 fL (35.1-46.3); Red Blood Cell Count 2.73 M/mm3 (3.80-5.20); White Blood Cell Count 7.72 K/mm3 (4.00-11.30)
[2020-06-22 04:59] LABS: Albumin, Blood 2.8 g/dL (3.4-5.0); Albumin/Globulin Ratio 0.8 (0.8-1.8); Bilirubin, Total 0.2 mg/dL (0.1-1.0); Bun/Creatinine Ratio 17.5 (12.0-20.0); Calcium, Blood 8.6 mg/dL (8.5-10.1); Creatinine, Blood 2.57 mg/dL (0.40-1.00); Globulin, Blood 3.6 g/dL (2.2-4.0); Magnesium, Blood 1.7 mg/dL (1.6-2.4); Phosphorus, Blood 3.2 mg/dL (2.5-4.9); Total Protein, Blood 6.4 g/dL (6.4-8.2)
--- NOTE | 2020-06-22 05:03 | NUR ---
SHIFT SUMMARY PT HAS DONE MUCH BETTER THIS SHIFT. SHE HAS HAD NO NAUSEA AND IS TOLERATING CONTINIOUS FEEDS AT 40 ML/HR. THERE HAS BEEN NO RESIDUAL WITH Q4HR CHECKS. PT HAS HAD NO COMPLAINTS OF PAIN. STILL HAVING LOOSE WATERY STOOLS. PT PLESANT AND COOPERATIVE WITH CARE. SHE IS HOPING FOR DC TODAY PENDING HER AM LAB RESULTS. BED IN LOWEST POSITON, CALL LIGHT WITHIN REACH.
[2020-06-22 05:15] LABS: BAND PERCENT MAN 5 % (0-8); BASOPHILS PERCENT MAN 0 % (0-2); EOSINOPHILS ABSOLUTE MAN 0.07 K/mm3 (0.00-0.68); EOSINOPHILS PERCENT MAN 1 % (0-6); LYMPHOCYTES ABSOLUTE MAN 0.54 K/mm3 (0.84-5.20); LYMPHOCYTES PERCENT MAN 7 % (21-46); METAMYELOCYTE ABSOLUTE MAN 0.15 K/mm3 (0.00-0.00); METAMYELOCYTE PERCENT MAN 2 % (0-0); MONOCYTES ABSOLUTE MAN 0.84 K/mm3 (0.16-1.47); MONOCYTES PERCENT MAN 11 % (4-13); MYELOCYTE ABSOLUTE MAN 0.15 K/mm3 (0.00-0.00); MYELOCYTE PERCENT MAN 2 % (0-0); NEUTROPHILS ABSOLUTE MAN 5.94 K/mm3 (1.96-9.15); SEG NEUTROPHILS PERCENT MAN 72 % (41-73); TOTAL CELLS COUNTED 100
--- NOTE | 2020-06-22 19:17 | NUR ---
SHIFT SUMMARY KIRAN DENIED PAIN THIS SHIFT. VISITED. PEG TF STOPPED AT 0930 PER AURICULAR DETOXIFICATION SPECIALIST. STOPPED AT 0930, GAVE MEDS AT 0945, PT VOMITTED AT 11AM AND 12PM. ZOFRAN GIVEN. RESTARTED TF AT 1500 AT 40ML/HR AFTER DISCUSSION WITH DR MAYO THAT THEY DON'T WANT [facility] TO ADVANCE PEG FURTHER INTO JEJUNUM. THEY ARE PLANNING ON DC TOMORROW. TF RUNNING WITH THEIR HOME TF AT 40ML/HR WITH 30ML/HR WATER FLUSHES. INDEP TO BSC, HAD 2 LOOSE BM TODAY. MIVF RUNNING. MEDS CRUSHED IN PEG. CALL LIGHT IN REACH
[2020-06-23 07:56] LABS: Albumin, Blood 2.8 g/dL (3.4-5.0); Anion Gap 9 mmol/L (6-16); Blood Urea Nitrogen 42 mg/dL (8-24); Bun/Creatinine Ratio 16.9 (12.0-20.0); CO2, Blood 18 mmol/L (21-32); Calcium, Blood 8.6 mg/dL (8.5-10.1); Chloride, Blood 115 mmol/L (98-108); Creatinine, Blood 2.49 mg/dL (0.40-1.00); Glomerular Filtration Rate 21 (60-); Glucose, Blood 161 mg/dL (70-99); Phosphorus, Blood 2.6 mg/dL (2.5-4.9); Sodium, Blood 142 mmol/L (136-145)
--- NOTE | 2020-06-23 08:10 | NUR ---
SHIFT SUMMARY A/O, ABLE TO MAKE NEEDS KNOWN. COOPERATIVE WITH CARE. CALLS AND ANSWERS QUESTIONS APPROPRIATELY. NO C/O PAIN/DISCOMFORT. GIVEN IV ZOFRAN FOR NAUSEA WITH BEDTIME MEDICATIONS. TOLERATED CONT. TUBE FEEDING T/O NIGHT. IV FLUIDS CONTINUED TO HERRERA WITHOUT COMPLICATIONS. APPEARED TO REST MUCH OF THE NIGHT. NO ACUTE CHANGES NOTED OVERNIGHT. BED REMAINS IN LOWEST POSITION. CALL LIGHT AND BELONGINGS WITHIN REACH. REPORT GIVEN TO ONCOMING RN.
--- NOTE | 2020-06-23 09:44 | NUR ---
TALKED TO ABOUT PROBITOTIC. WILL D'C HER ON PROBIOTIC.
[2020-06-23] MEDS ORDERED: CITA20 PT (14:35)
[2020-06-23] MEDS ORDERED: Erythromycin500 M1 PT (14:37)
[2020-06-23] MEDS ORDERED: AMIL5 PT (14:37)
[2020-06-23] MEDS ORDERED: ACET325UDC PT (14:37)
[2020-06-23] MEDS ORDERED: POTA20LUD PT (14:38)
[2020-06-23] MEDS ORDERED: VITAMIN D31000 UNI1 PT (14:39)
[2020-06-23] MEDS ORDERED: VISBIOME PROBIOTIC PT (14:39)
[2020-06-23] MEDS ORDERED: CEPH500 PT (14:40)
--- NOTE | 2020-06-23 15:16 | NUR ---
REVIEW D'C W/PATIENT AND S.O. AWARE HH WILL F/U WITH THEM AND HAS AN APPT. ON MONDAY WITH LAB DRAW. REVIEW PUMP TUBE FEEDINGS WITH BOTH. UNSURE WHEN PATIENT WILL GET HOME PUMP. ANSWER ALL QUESTIONS. IN W/C TO POV
== END 2020-06-23 15:18 | disposition home or self-care (01) | DRG 683 ==
LOC: ER 12:04 → PCU 15:22 → MEDS 15:22 → ICUW 15:22 → PCU 06-17 18:15 → MEDS 06-20 17:10
PROVIDERS: Emergency Medicine; Internal Medicine; Nurse Practitioner Acute Care; ADMIT Internal Medicine
DX: N17.9 Acute kidney failure, unspecified (principal); E87.1 Hypo-osmolality and hyponatremia; E87.2 Acidosis; K50.90 Crohn's disease, unspecified, without complications; K94.22 Gastrostomy infection; L03.311 Cellulitis of abdominal wall; C77.0 Secondary and unspecified malignant neoplasm of lymph nodes of head, face and neck; E78.5 Hyperlipidemia, unspecified; E86.0 Dehydration; E87.5 Hyperkalemia; E87.6 Hypokalemia; F32.9 Major depressive disorder, single episode, unspecified; I25.10 Atherosclerotic heart disease of native coronary artery without angina pectoris; J44.9 Chronic obstructive pulmonary disease, unspecified; Z87.891 Personal history of nicotine dependence; N18.4 Chronic kidney disease, stage 4 (severe); E83.39 Other disorders of phosphorus metabolism; D63.1 Anemia in chronic kidney disease; Z91.041 Radiographic dye allergy status; C01 Malignant neoplasm of base of tongue
CPT/HCPCS: 36415; 36430; 71045; 76770; 80048; 80053; 80069; 81001; 82274; 82306; 82436; 82550; 82570; 82607; 82728; 82746; 82803; 82947; 83540; 83550; 83735; 84100; 84132; 84133; 84300; 84439; 84443; 84550; 85014; 85018; 85025; 86850; 86900; 86901; 86920; 86923; 87070; 87075; 87077; 87086; 87106; 87186; 87205; 92526; 92610; 93005; 93010; 96365; 96366; 99285-25; C1751; J0696; J1644; J2405; J2765; J3475; J3480; J7030; J7050; J7060; P9016

== ENCOUNTER → 2020-07-10 | Outpatient (CLI) | payer OTHER ==
[~2020-07-10] MED LIST changes: +ACET325UDC PT; +AMIL5 PT; +ASCO500 PO; +CEPH500 PT; +CITA20 PT; +ESCI10 PO; +Erythromycin500 M1 PT; +ONDA8 PO; +POTA20LUD PT; +Seroquel Xr50 MG PT; +TOLT4 PT; +VISBIOME PROBIOTIC PT; +VITAMIN D31000 UNI1 PT; +Vitamin D2000 UNIT PO
[2020-07-10 17:49] LABS: BASOPHILS ABSOLUTE AUTO 0.05 K/mm3 (0.00-0.23); BASOPHILS PERCENT AUTO 0 % (0-2); EOSINOPHILS ABSOLUTE AUTO 0.03 K/mm3 (0.00-0.68); EOSINOPHILS PERCENT AUTO 0 % (0-6); Hematocrit 25.1 % (33.0-51.0); Hemoglobin 8.9 g/dL (11.5-16.0); IMMATURE GRAN ABSOLUTE AUTO 0.46 K/mm3 (0.00-0.10); IMMATURE GRAN PERCENT AUTO 3 % (0-1); LYMPHOCYTES ABSOLUTE AUTO 1.11 K/mm3 (0.84-5.20); LYMPHOCYTES PERCENT AUTO 7 % (21-46); MONOCYTES ABSOLUTE AUTO 0.94 K/mm3 (0.16-1.47); MONOCYTES PERCENT AUTO 6 % (4-13); Mean Corpuscular HGB 31.6 pg (26.0-34.0); Mean Corpuscular HGB Conc 35.5 g/dL (31.5-36.5); Mean Corpuscular Volume 89 fL (80-100); Mean Platelet Volume 10.1 fL (9.1-12.4); NEUTROPHILS ABSOLUTE AUTO 12.92 K/mm3 (1.96-9.15); NEUTROPHILS PERCENT AUTO 83 % (41-73); Platelet Count 225 K/mm3 (150-400); RDW Coefficient Variation 15.2 % (11.7-14.2); RDW Standard Deviation 49.1 fL (35.1-46.3); Red Blood Cell Count 2.82 M/mm3 (3.80-5.20); White Blood Cell Count 15.51 K/mm3 (4.00-11.30)
[2020-07-10 18:27] LABS: Albumin, Blood 3.2 g/dL (3.4-5.0); Anion Gap 15 mmol/L (6-16); Blood Urea Nitrogen 66 mg/dL (8-24); Bun/Creatinine Ratio 29.6 (12.0-20.0); CO2, Blood 16 mmol/L (21-32); Chloride, Blood 94 mmol/L (98-108); Creatinine, Blood 2.23 mg/dL (0.40-1.00); Glomerular Filtration Rate 23 (60-); Glucose, Blood 173 mg/dL (70-99); Phosphorus, Blood 3.9 mg/dL (2.5-4.9); Potassium, Blood 3.4 mmol/L (3.5-5.5); Sodium, Blood 125 mmol/L (136-145)
== END | disposition home or self-care (01) ==
LOC: LAB HH 16:33
PROVIDERS: Internal Medicine
DX: E87.1 Hypo-osmolality and hyponatremia (principal); N17.9 Acute kidney failure, unspecified; N18.30 Chronic kidney disease, stage 3 unspecified
CPT/HCPCS: 80069; 82533; 84443; 84550; 85025

== ENCOUNTER → 2020-10-01 | Outpatient (CLI) | payer OTHER ==
[2020-10-01 16:47] LABS: Anion Gap 8 mmol/L (6-16); Blood Urea Nitrogen 23 mg/dL (8-24); Bun/Creatinine Ratio 11.6 (12.0-20.0); CO2, Blood 23 mmol/L (21-32); Calcium, Blood 8.8 mg/dL (8.5-10.1); Chloride, Blood 108 mmol/L (98-108); Creatinine, Blood 1.98 mg/dL (0.40-1.00); Glomerular Filtration Rate 27 (60-); Glucose, Blood 91 mg/dL (70-99); Potassium, Blood 3.1 mmol/L (3.5-5.5); Sodium, Blood 139 mmol/L (136-145)
[2020-10-02 15:28] LABS: Magnesium, Blood 1.7 mg/dL (1.6-2.4)
== END | disposition home or self-care (01) ==
LOC: LAB SHORT 13:47 → LAB 13:47
PROVIDERS: Internal Medicine
DX: N18.32 Chronic kidney disease, stage 3b (principal); E87.6 Hypokalemia
CPT/HCPCS: 36415; 80069; 83735

== ENCOUNTER → 2021-04-09 | Outpatient (CLI) | payer OTHER ==
[2021-04-09 14:31] LABS: Protein, Urine Random 43.6 mg/dL (0.0-11.9); Protein/Creat Ratio, Ur Random 0.3
== END | disposition home or self-care (01) ==
LOC: LAB SHORT 12:25
PROVIDERS: Internal Medicine
DX: N18.4 Chronic kidney disease, stage 4 (severe) (principal)
CPT/HCPCS: 82570; 84156

== ENCOUNTER → 2021-07-20 | Outpatient (CLI) | payer OTHER ==
[2021-07-20 16:56] LABS: Source, Urine Clean Catch
[2021-07-20 18:57] LABS: Appearance, Urine Clear (Clear); Bilirubin, Urine Neg (Neg); Blood, Urine Neg (Neg); Color, Urine Yellow (P-Yellow); Glucose Qualitative, Urine Neg (Neg); Ketones, Urine Neg (Neg); Leukocyte Esterase, Urine Neg (Neg); Nitrite, Urine Neg (Neg); Protein, Urine Neg (Neg); Urobilinogen, Urine NORM (Normal)
[2021-07-20 19:46] LABS: Protein, Urine Random 25.4 mg/dL (0.0-11.9); Protein/Creat Ratio, Ur Random 0.2
== END | disposition home or self-care (01) ==
LOC: LAB SHORT 14:00
PROVIDERS: Internal Medicine Nephrology
DX: N18.4 Chronic kidney disease, stage 4 (severe) (principal)
CPT/HCPCS: 81003; 82570; 84156

== ENCOUNTER → 2024-05-20 | Outpatient (CLI) | payer OTHER ==
[~2024-05-20] MED LIST changes: +CITA20 PO; -CITA20 PT; +POTA20LUD PO; -POTA20LUD PT; +Seroquel Xr50 MG PO; -Seroquel Xr50 MG PT; +TOLT4 PO; -TOLT4 PT; +VISBIOME PROBIOTIC PO; -VISBIOME PROBIOTIC PT; +VITAMIN D31000 UNI1 PO; -VITAMIN D31000 UNI1 PT
== END | disposition home or self-care (01) ==
LOC: LAB 07:51 → LAB SHORT 07:51
DX: L72.0 Epidermal cyst (principal)
CPT/HCPCS: 88305